=== PATIENT | female | born 1985 | race Caucasian/White ===

== ENCOUNTER 2017-04-14 20:22 | Emergency (ER) | payer OTHER ==
[2017-04-14] MEDS ORDERED: NS 1,000 ML IV ONE (20:33)
[2017-04-14] MEDS ORDERED: LORazepam 2 MG/ML INJ IVP ONE (20:33)
[2017-04-14] MEDS ORDERED: levETIRAcetam 500 MG in NS 100 ML IV ONE (20:33)
[2017-04-14 20:35] VITALS: RESP 16; TEMP 98.6
--- NOTE | 2017-04-14 20:37 | EDPHY ---
H & P Time Seen by Provider: 04/14/17 20:22 HPI/ROS: CHIEF COMPLAINT: Seizure HISTORY OF PRESENT ILLNESS: The patient is a 31-year-old female who comes to the emergency department after a seizure. She states that she has been very active today and it has been hot and she was dehydrated. She had 1 drink of beer this evening and is walking down the street with her boyfriend when she has started to feel dizzy. She began to seize and her boyfriend helped her to the ground. He protected her head. This is the 3rd seizure of her life. She has had CT scans and MRIs in the past which have been negative. She followed up with Neurology. She is not sure whether not she had an EEG. She does not take any anti epileptic medications. She states that all of her seizures have happened in the setting of dehydration. She denies . She denies recent illness or fevers. Her full body convulsions lasted for about 1-2 minutes according to her boyfriend. EMS states that she was postictal. No oral trauma. No incontinence. Her symptoms resolved by the time she came to the emergency department. No headache. REVIEW OF SYSTEMS: Constitutional: denies: chills, fever, recent illness, recent injury EENTM: denies: blurred vision, double vision, nose congestion Respiratory: denies: cough, shortness of breath Cardiac: denies: chest pain, irregular heart rate, lightheadedness, palpitations Gastrointestinal/Abdominal: denies: abdominal pain, diarrhea, nausea, vomiting, blood streaked stools Genitourinary: denies: dysuria, frequency, hematuria, pain Musculoskeletal: denies: joint pain, muscle pain Skin: denies: lesions, rash, jaundice, bruising Neurological: See HPI Hematologic/Lymphatic: denies: blood clots, easy bleeding, easy bruising Immunologic/allergic: denies: HIV/AIDS, transplant EXAM: GENERAL: Well-appearing, well-nourished and in no acute distress. HEAD: Atraumatic, normocephalic. EYES: Pupils equal round and reactive to light, extraocular movements intact, sclera anicteric, conjunctiva are normal. ENT: TMs normal, nares patent, oropharynx clear without exudates. Moist mucous membranes. NECK: Normal range of motion, supple without lymphadenopathy or JVD. LUNGS: Breath sounds clear to auscultation bilaterally and equal. No wheezes rales or rhonchi. HEART: Regular rate and rhythm without murmurs, rubs or gallops. ABDOMEN: Soft, nontender, normoactive bowel sounds. No guarding, no rebound. No masses appreciated. BACK: No CVA tenderness, no spinal tenderness, step-offs or deformities EXTREMITIES: Normal range of motion, no pitting or edema. No clubbing or cyanosis. NEUROLOGICAL: Cranial nerves II through XII grossly intact. Normal speech, normal gait. 5/5 strength, normal movement in all extremities, normal sensation PSYCH: Normal mood, normal affect. SKIN: Warm, dry, normal turgor, no visible rashes or lesions. Source: Patient Exam Limitations: No limitations - Medical/Surgical History Hx Asthma: No Hx Chronic Respiratory Disease: No Hx Diabetes: No Hx Cardiac Disease: No Hx Renal Disease: No Hx Cirrhosis: No - Family History Significant Family History: No pertinent family hx - Social History Smoking Status: Never smoked Alcohol Use: Occasionally Drug Use: None Constitutional: Initial Vital Signs Temperature (C) 37 C 04/14/17 20:32 Heart Rate 111 H 04/14/17 20:32 Respiratory Rate 16 04/14/17 20:32 Blood Pressure 144/105 H 04/14/17 20:32 O2 Sat (%) 95 04/14/17 20:32 O2 Delivery Mode Room Air Allergies/Adverse Reactions: No Known Allergies Allergy (Unverified 04/14/17 20:43) Home Medications: Medication Instructions Recorded levETIRAcetam [Keppra 500 mg (*)] 500 mg PO BID #30 tab 04/14/17 Medical Decision Making ED Course/Re-evaluation: The patient is feeling completely normal. We agreed to start her on Keppra and have her follow up with Neurology. She declines further workup or testing at this time. Differential Diagnosis: Partial list of the Differential diagnosis considered include but were not limited to; epilepsy, Syncope,dehydration, and although unlikely based on the history and physical exam, I also considered trauma, infection, tumor. I discussed these differential diagnoses and the plan with the patient as well as the usual and expected course. The patient understands that the diagnosis is provisional and that in medicine we are not always correct and that further workup is often warranted. Usual and customary warnings were given. All of the patient's questions were answered. The patient was instructed to return to the emergency department should the symptoms at all worsen or return, otherwise to followup with the physician as we discussed. - Data Points Laboratory Results: Laboratory Results 04/14/17 20:45 04/14/17 20:45 Medications Given: Discontinued Medications Sodium Chloride (Ns) 1,000 mls @ 0 mls/hr IV ONCE ONE; Wide Open PRN Reason: Protocol Stop: 04/14/17 20:34 Last Admin: 04/14/17 20:43 Dose: 1,000 mls Levetiracetam 500 mg/ Sodium (Chloride) 105 mls @ 420 mls/hr IV EDNOW ONE Stop: 04/14/17 20:47 Last Admin: 04/14/17 21:04 Dose: 105 mls Lorazepam (Ativan Injection) 1 mg IVP EDNOW ONE Stop: 04/14/17 20:34 Last Admin: 04/14/17 20:43 Dose: 1 mg Departure - Departure Disposition: Home, Routine, Self-Care Clinical Impression: Seizure disorder, Dehydration Condition: Fair Instructions: Levetiracetam (By mouth), Recurrent Seizures in Adults (ED) Referrals: Patient,NotPresent [Unknown] - As per Instructions Vincent Miller DO [Medical Doctor] - As per Instructions Prescriptions: levETIRAcetam [Keppra 500 mg (*)] 500 mg PO BID #30 tab
[2017-04-14 20:56] LABS: % IMMATURE GRANULYOCYTES 0.3 % (0.0-1.1); ABSOLUTE IMMATURE GRANULOCYTES 0.04 10^3/uL (0.00-0.10); ADD DIFF? NO; ADD MORPH? NO; ADD SCAN? NO; ATYPICAL LYMPHOCYTE FLAG 0 (0-99); FRAGMENT RBC FLAG 0 (0-99); HEMATOCRIT 40.5 % (38.0-47.0); HEMOGLOBIN 14.1 g/dL (12.6-16.3); LEFT SHIFT FLG 0 (0-99); LIPEMIA HEMOLYSIS FLAG 90 (0-99); MEAN CELL HEMOGLOBIN 33.1 pg (27.9-34.1); MEAN CELL HEMOGLOBIN CONCENTR. 34.8 g/dL (32.4-36.7); MEAN CELL VOLUME 95.1 fL (81.5-99.8); MEAN PLATELET VOLUME 10.2 fL (8.7-11.7); PLATELET CLUMPS FLAG 0 (0-99); PLATELET COUNT 308 10^3/uL (150-400); RED BLOOD CELL COUNT 4.26 10^6/uL (4.18-5.33); RED CELL DISTRIBUTION WIDTH 11.9 % (11.5-15.2)
[2017-04-14 21:08] LABS: ANION GAP 25 mEq/L (8-16); CALCIUM 9.4 mg/dL (8.5-10.4); CARBON DIOXIDE 12 mEq/l (22-31); CHLORIDE 106 mEq/L (97-110); CREATININE 0.9 mg/dL (0.6-1.0); GLOMERULAR FILTRATION RATE > 60; GLUCOSE 89 mg/dL (70-100); POTASSIUM 3.9 mEq/L (3.5-5.2); SODIUM 143 mEq/L (134-144)
[2017-04-14 21:49] VITALS: BP 121/80; PULSE 93; O2SAT 96
== END 2017-04-14 22:17 | disposition home or self-care (01) ==
LOC: EDUNIT#
DX: G40.909 Epilepsy, unspecified, not intractable, without status epilepticus (principal); E86.0 Dehydration; E86.9 Volume depletion, unspecified
CPT/HCPCS: 96365; J1953; J2060

== ENCOUNTER → 2017-04-19 | Outpatient (CLI) | payer OTHER ==
--- NOTE | 2017-04-20 20:41 | CPEEG ---
[f rep st] ELECTROENCEPHALOGRAM DATE OF STUDY: 04/19/2017 INTRODUCTION: This is a multichannel EEG using the standard international 10-20 system of disk elec trode placement. A single EKG channel was monitored for the duration of the study. This study was undertaken for the evaluation of seizures. Pertinent medications include levetiracetam. Duration o f the study is 30 minutes. DESCRIPTION OF RECORDING: In the maximally alert state, the patient achieved a symmetric posterior dominant rhythm of 8 Hz alpha activity that attenuated with eye opening. Activating measures includ ing photic stimulation and hyperventilation were performed. Photic stimulation failed to activate t he tracing. Hyperventilation resulted in a transient buildup response. Drowsiness was marked by sl ow roving eye movements, attenuation of the background, and anterior spread of alpha. No subsequent sleep architecture was observed. The EKG demonstrated normal sinus rhythm. INTERPRETATION: This is a normal awake and drowsy electroencephalogram. CLINICAL CORRELATION: No focal lateralizing epileptiform discharges. A normal EEG does not exclude a diagnosis of epilepsy. /[id number]/MODL
== END ==
LOC: FCPNEURO 08:42
PROVIDERS: ATTEND Psychiatry & Neurology Neurology
DX: G40.909 Epilepsy, unspecified, not intractable, without status epilepticus (principal)

== ENCOUNTER → 2017-04-22 | Outpatient (CLI) | payer OTHER ==
[~2017-04-22] MED LIST: GADOBUTROL 10 ML VIAL IVP ONE
== END ==
LOC: FIMAGING 08:44
PROVIDERS: ATTEND Psychiatry & Neurology Neurology
DX: G40.909 Epilepsy, unspecified, not intractable, without status epilepticus (principal)
CPT/HCPCS: A9585